=== PATIENT | female | born 1980 | race Two or more races ===

== ENCOUNTER 2020-02-08 19:34 | Emergency (ER) | payer OTHER ==
[~2020-02-08] VITALS: Ht 162.6 cm; Wt 53.5 kg
[2020-02-08] MEDS ORDERED: ASPIRIN 81 MG TABLET CHEW PO ONE (20:00)
[2020-02-08 20:05] LABS: BASOPHILS % (AUTO) 1 % (0-1); EOSINOPHILS % (AUTO) 1 % (1-7); LYMPHOCYTES % (AUTO) 14 % (22-44); MEAN CORPUSCULAR HEMOGLOBIN 28.9 pg (27.0-34.8); MEAN CORPUSCULAR HGB CONC 32.9 g/dL (32.4-35.8); MEAN PLATELET VOLUME 8.7 fL (7.4-10.4); MONOCYTES % (AUTO) 5 % (2-9); NEUTROPHILS % (AUTO) 79 % (42-75); PLATELET COUNT 316 x10^3/uL (130-400); RED CELL DISTRIBUTION WIDTH 13.7 % (9.6-15.2)
[2020-02-08 20:17] LABS: ALANINE AMINOTRANSFERASE 16 U/L (12-78); ALBUMIN 4.4 g/dL (3.4-5.0); ANION GAP 5 mmol/L (5-15); CALCIUM 9.5 mg/dL (8.5-10.1); CHLORIDE 109 mmol/L (98-107); CREATININE 0.81 mg/dL (0.55-1.02)
[2020-02-08 20:21] LABS: ALKALINE PHOSPHATASE 89 U/L (45-117); BILIRUBIN,TOTAL 0.2 mg/dL (0.2-1.0); MD NO; TOTAL PROTEIN 8.5 g/dL (6.4-8.2); TROPONIN I < 0.015 ng/mL (0.000-0.045)
[2020-02-08] MEDS ORDERED: ASPIRIN 81 MG TABLET EC ONE (22:32)
--- NOTE | 2020-02-08 22:35 | NUR ---
medicated per order, no chew baby asa avail in er given x2 81mg ec asa po. pt has no cp waiting for md re-eval.
[2020-02-08] MEDS ORDERED: ONDANSETRON ODT 4 MG ONE (22:56)
[2020-02-08] MEDS ORDERED: ONDANSETRON ODT 4 MG PO ONE (23:00)
--- NOTE | 2020-02-08 23:12 | NUR ---
refused zofran, pt not nauseated. returned to [facility].
[2020-02-08 23:55] VITALS: BP 135/74
== END 2020-02-08 23:58 | disposition home or self-care (01) ==
LOC: ED 22:50
DX: R06.00 Dyspnea, unspecified (principal); R11.0 Nausea; R07.89 Other chest pain; R00.2 Palpitations; R00.0 Tachycardia, unspecified
CPT/HCPCS: 36415; 71046; 80053; 83690; 84443; 84484; 84703; 85025; 93005; 99285